=== PATIENT | female | born 1995 | race Caucasian/White ===

== ENCOUNTER 2019-01-31 15:55 | Emergency (ER) | payer SELFPAY ==
[2019-01-31 16:00] VITALS: BP 125/84; PULSE 80; RESP 16; TEMP 36.6; O2SAT 98; BMI 21.1
--- NOTE | 2019-01-31 17:47 | ED.EYEPROB ---
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 She thinks it was a small leyla. She used the eye wash at work, but still painful, then showered and used eye drops, but still has scratchy, irritated pain and clear tearing. She does not know her baseline vision, states when she is comfortable enough to look she does not think any acute vision change in that eye. She denies any other complaints on systems review today. Denies possibility of pG Related Data Previous Rx's Medication Instructions Recorded erythromycin 0.5 inch EYE-RIGHT .q3wa #1 gram 01/31/19 Allergies Allergy/AdvReac Type Severity Reaction Status Date / Time No Known Drug Allergies Allergy Verified 01/31/19 16:05 Review of Systems <Phyllis Oneil PA-C - Last Filed: 01/31/19 20:49> Review of Systems ROS Unobtainable: All systems reviewed & are unremarkable except as noted in HPI and below Patient History <Phyllis Oneil PA-C - Last Filed: 01/31/19 20:49> Medical History (Updated 01/31/19 @ 18:10 by Phyllis Oneil PA-C) No chronic problems (Chronic) Surgical History (Updated 01/31/19 @ 18:10 by Phyllis Oneil PA-C) Status post tonsillectomy (Resolved) Social History Smoking Status: Current some day smoker Smoking Status: Current some day smoker alcohol intake frequency: holidays/special occasions only Substance Use Type: marijuana Exam <Phyllis Oneil PA-C - Last Filed: 01/31/19 20:49> Narrative Exam Narrative: GENERAL APPEARANCE: Patient sitting comfortably, in dark room, in no distress. HEENT: PERRL, EOMI, no visible foreign body the right eye. With fluorescein stain, there is an abraded area just inferior to the iris centrally, no other abrasion seen, no foreign body and countered with lid sweep. No d/c noted Initial Vital Signs Initial Vital Signs: Vital Signs Temperature 97.8 F 01/31/19 16:00 Pulse Rate 80 01/31/19 16:00 Respiratory Rate 16 01/31/19 16:00 Blood Pressure 125/84 01/31/19 16:00 Pulse Oximetry 98 01/31/19 16:00 <Hardeep Marley DO - Last Filed: 01/31/19 21:04> Initial Vital Signs Initial Vital Signs: Vital Signs Temperature 97.8 F 01/31/19 16:00 Pulse Rate 80 01/31/19 16:00 Respiratory Rate 16 01/31/19 16:00 Blood Pressure 125/84 01/31/19 16:00 Pulse Oximetry 98 01/31/19 16:00 Course <Phyllis Oneil PA-C - Last Filed: 01/31/19 20:49> Vital Signs Vital signs: Vital Signs - 8 hr 01/31/19 16:00 01/31/19 18:16 Temperature 97.8 F Pulse Rate 80 74 Respiratory Rate 16 18 Blood Pressure 125/84 125/78 Pulse Oximetry 98 <Hardeep Marley DO - Last Filed: 01/31/19 21:04> Vital Signs Vital signs: Vital Signs - 8 hr 01/31/19 16:00 01/31/19 18:16 Temperature 97.8 F Pulse Rate 80 74 Respiratory Rate 16 18 Blood Pressure 125/84 125/78 Pulse Oximetry 98 Discharge Plan Departure Patient Disposition: Home Clinical Impression: Corneal abrasion Discharge Date/Time: 01/31/19 18:16 Instructions: DI for Corneal Abrasion Activity Restrictions/Additional Instructions: I did not see any foreign body in your eye today, however you did scratch the cornea. Please start the antibiotic ointment as soon as you pick it up. Return to the closest ED if you have any acutely worsening eye pain or new symptoms such as vision change. Please call our Ophthalmology group tomorrow as we talked about if your eye is not feeling better by tomorrow morning (I have prescribed an antibiotic ointment to help prevent infection and also this can be soothing to help with pain). Prescriptions: New erythromycin 5 mg/gram (0.5 %) ointment 0.5 inch EYE-RIGHT .q3wa Qty: 1 RF: 0 Referrals: Rolo Vergara MD [Physician] - <Hardeep Marley, - Last Filed: 01/31/19 21:04> Sign Out Provider Sign Out Attestation: Dr Marley Co-Sign Statement: I was available for consultation during this patient's emergency department visit. This chart is signed by myself for administrative purposes only. I did not have direct contact with this patient during this visit. They were seen independently by the APC.
[2019-01-31 18:16] VITALS: BP 125/78; PULSE 74; RESP 18
== END 2019-01-31 18:16 | disposition home or self-care (01) ==
PROVIDERS: Emergency Provider Internal Medicine
DX: S05.01XA Injury of conjunctiva and corneal abrasion without foreign body, right eye, initial encounter (principal)
CPT/HCPCS: 99283